=== PATIENT | female | born 1965 | race Caucasian/White ===

== ENCOUNTER 2023-10-18 21:42 | Emergency (ER) | payer OTHER, SELFPAY ==
[2023-10-18 21:46] VITALS: BP 179/108
[2023-10-18] MEDS: ZOFRAN ODT (ORALLY DISINTEGRATING) 4 MG PO (21:53)
[2023-10-18 22:04] LABS: Urine Albumin Negative (Neg - Trace); Urine Bilirubin Negative (Negative); Urine Character Clear (Clear); Urine Color Yellow; Urine Glucose Negative (Negative); Urine Ketone Negative (Negative); Urine Leukocyte Negative (Negative); Urine Nitrite Negative (Negative); Urine Occult Blood 1+ (Negative); Urine Specific Gravity 1.005 (<1.030); Urine Urobilinogen Negative (Neg - 1+)
[2023-10-18 22:11] LABS: Urine Bacteria Few (Negative); Urine White Cell 0-2 /HPF (0-5)
--- NOTE | 2023-10-18 23:28 | ED.GENMED ---
History of Present Illness
General
Chief Complaint: Flank Pain
Time Seen by Provider: 10/18/23 23:08
History of Present Illness
History of Present Illness:
58-year-old female with history of medullary sponge kidney and recurrent kidney stones presents to the emergency department for evaluation of left flank pain developing today. Typically she is able to pass kidney stones with only mild to moderate
pain and generally does well with ibuprofen. She is taken multiple doses of ibuprofen today without relief. Denies any fevers, chills, sweats, vomiting, or diarrhea.
Past History
Past History
ED Past Medical History: Other (Medullary sponge kidney, recurrent kidney stones, RSD)
Social History
Tobacco: Non-smoker
Alcohol: Occasional
Family History
Family History: Negative Diabetes, Hypertension or CAD
Review of Systems
Review of Systems
Allergies reviewed?: Yes
All Other Systems: ROS reviewed and negative except as documented in HPI and ROS
Phy Exam
Physical Exam
Physical Exam:
GEN: Well appearing, NAD, WDWN
HEENT: Oral mucosa moist, no scleral icterus
Cardiac: Regular rate
Lung: No respiratory distress, no tachypnea
MSK: No gross deformity or injuries
Skin: Good color, no pallor or jaundice, no rashes
Neuro: AO x3, moves all extremities freely
Psych: Calm, cooperative
Course
Orders/Labs/Results
Orders:
Orders
10/18/23 21:52
Ondansetron Orally Disint [Zofran Odt (Orally Disintegrating)] 4 mg .ROUTE .ST-MED ONE
10/18/23 21:53
Ondansetron Orally Disint [Zofran Odt (Orally Disintegrating)] 4 mg PO NOW STA
10/18/23 21:56
Urinalysis Reflex To Culture Urgent
Date Specimen was Collected: 10/18/23
Time Specimen was Collected: 21:49
Urine Microscopic Reflex Cult Urgent
10/18/23 23:28
CT Abd/pel Without Iv Or Oral Urgent
Comment:
Reason For Exam: L flank pain h/o stones
0.9% Sodium Chloride 1000 ml [Nss] 1,000 ml IV BOLUS
Ketorolac [Toradol] 15 mg IV NOW STA
10/19/23 00:30
Tamsulosin [Flomax] 0.4 mg PO NOW STA
Abnormal Lab Results
10/18/23
21:56
Ur Occult Blood Reflex 1+ A
(Negative)
Urine RBC 7-10 A /HPF
(0-2)
Urine Bacteria (Reflex) Few A
(Negative)
Vital Signs
Initial and Last Documented VS:
Initial Vital Signs
Temp Pulse Resp BP Pulse Ox
97.8 F 83 20 179/108 99
10/18/23 21:46 10/18/23 21:46 10/18/23 21:46 10/18/23 21:46 10/18/23 21:46
Last Documented Vital Signs
Temp Pulse Resp BP Pulse Ox
97.8 F 83 20 133/75 97
10/18/23 21:46 10/18/23 21:46 10/18/23 21:46 10/19/23 00:01 10/19/23 00:45
MDM/Problems Addressed
MDM/Problems Addressed:
Distal left ureteral stone identified, patient's pain improved with treatment in emergency department. She is a long history of kidney stones that have been managed without operative intervention. Will treat supportively, no indication for
antibiotics
*Critical Care Note
Total Time (30-74mins, 75-104mins- exclusive of procedures): Not Applicable
ED Attending Note
-
Portions of this chart may have been created with voice recognition software.� Occasional wrong word or��sound alike� substitutions may have occurred due to the inherent limitations of voice recognition software.
Discharge Plan
Departure
Patient Disposition: Home (Routine Discharge)
Date of Disposition: 10/19/23
Time of Disposition: 01:05
Patient with high blood pressure during this ER visit?: No
Discharge Problem:
Ureterolithiasis
Instructions: Kidney Stones (DC)
Prescriptions:
New
diclofenac sodium 75 mg tablet,delayed release (DR/EC)
75 mg PO BID PRN (Reason: Pain) Qty: 20 0RF
tamsulosin [Flomax] 0.4 mg capsule
0.4 mg PO HS Qty: 10 0RF
oxycodone-acetaminophen [Percocet] 5-325 mg tablet
1 tab PO Q6HPRN PRN (Reason: pain) Qty: 8 0RF
No Action
Theragen Tablet
1 tab PO DAILY
ibuprofen 200 mg Tablet
400 mg PO Q6H PRN (Reason: mild pain)
Referrals:
Keenan Morton CRNP [Family Provider] -
Activity Restrictions/Additional Instructions:
Return if you develop a fever or uncontrolled pain
Interventions
Interventions:
*Risk Screen - Suicide Last Done: 10/19/23 00:24
*General Assessment Last Done: 10/18/23 21:46
*Neglect/Abuse Screening Last Done: 10/19/23 00:24
ED- Fall Risk Assessment Last Done: 10/19/23 01:14
*Nursing Disposition Last Done: 10/19/23 01:14
FZ-Ifverx-Djnvbhyyua Assessment Last Done: 10/19/23 00:19
ED-Female Genitourinary Assessment Last Done: 10/19/23 00:19
Discharge Date and Time
Discharge Date/Time: 10/19/23 01:15
Print Language: HEBREW
[2023-10-19 00:01] VITALS: BP 133/75
[2023-10-19] MEDS: NSS 1000 IV (00:07)
[2023-10-19] MEDS: TORADOL 15 MG IV (00:07)
[2023-10-19] MEDS: FLOMAX 0.4 MG PO (01:00)
== END 2023-10-19 01:15 | disposition home or self-care (01) ==
LOC: EMR 21:42
PROVIDERS: Emergency Medicine; EMERGENCY PHYSICIAN Emergency Medicine; FAMILY PHYSICIAN Nurse Practitioner Family
DX: N20.1 Calculus of ureter (principal); Q61.5 Medullary cystic kidney; G90.50 Complex regional pain syndrome I, unspecified; Z87.442 Personal history of urinary calculi
CPT/HCPCS: 99284; 96374; 96361; 74176; 81003; 81015

== ENCOUNTER 2023-10-20 11:12 | Emergency (ER) | payer OTHER, SELFPAY ==
[2023-10-20] VITALS (7 sets, daily range): BP systolic 128–155; BP diastolic 70–99; BMI 33.9
[2023-10-20 11:47] LABS: Urine Albumin Negative (Neg - Trace); Urine Bilirubin Negative (Negative); Urine Character Clear (Clear); Urine Color Yellow; Urine Glucose Negative (Negative); Urine Ketone Negative (Negative); Urine Leukocyte Trace (Negative); Urine Nitrite Negative (Negative); Urine Occult Blood 2+ (Negative); Urine Urobilinogen Negative (Neg - 1+)
[2023-10-20 12:05] LABS: Urine Mucus Moderate
[2023-10-20 12:06] LABS: Urine Bacteria Few (Negative); Urine Red Blood Cell 16-20 /HPF (0-2)
[2023-10-20 12:16] LABS: % Basophils 0.4 % (0-2); % Eosinophils 1.6 % (0-6); % Immature Granulocytes 0.4 % (0-0.5); % Lymphocytes 20.9 % (20.5-51.1); % Monocytes 7.6 % (1.7-9.3); % Neutrophils 69.1 % (42.2-75.2); Absolute Basophils 0.1 10^3/uL (0-0.2); Absolute Eosinophils 0.2 10^3/uL (0-0.7); Absolute Immature Granulocytes 0.1 10^3/uL (0-0.05); Absolute Lymphocytes 2.6 10^3/uL (1.2-3.4); Absolute Monocytes 0.9 10^3/uL (0.1-0.6); Absolute Neutrophils 8.4 10^3/uL (1.4-6.5); Hemoglobin 13.1 g/dL (12.0-16.0); Mean Corp Hgb Conc. 33.6 g/dL (33.0-37.0); Mean Corpuscular Hgb 30.8 pg (27.0-31.0); Mean Corpuscular Volume 91.8 fL (81.0-99.0); Mean Platelet Volume 9.8 fL (7.4-10.4); Nucleated Red Blood Cells % 0 %; Platelet Count 285 10^3/uL (130-400); Red Blood Cell Count 4.25 10^6/uL (4.20-5.40); Red Cell Dist. Width 12.6 % (11.5-14.5); White Blood Cell Count 12.2 10^3/uL (4.8-10.8)
[2023-10-20 12:38] LABS: ALT (SGPT) 16 U/L (0-35); AST (SGOT) 25 U/L (14-36); Albumin 4.1 g/dl (3.5-5.0); Alkaline Phosphatase 76 U/L (38-126); Blood Urea Nitrogen 18 mg/dl (7-17); Calcium 9.1 mg/dl (8.4-10.2); Carbon Dioxide 23 mmol/L (22-30); Chloride 105 mmol/L (98-107); Glucose 144 mg/dl (70-99); Potassium 3.6 mmol/L (3.5-5.1); Sodium 135 mmol/L (135-145); Total Bilirubin 0.6 mg/dl (0.2-1.3); Total Protein 6.5 g/dl (6.3-8.2); eGFR > 60.00
--- NOTE | 2023-10-20 12:54 | ED.GENMED ---
History of Present Illness
<Naomi Jiang PA-C - Last Filed: 10/20/23 18:47>
General
Chief Complaint: Flank Pain
Source: patient
Exam Limitations: none
Time Seen by Provider: 10/20/23 12:32
Nursing documentation reviewed up to this point in time: agreed with
History of Present Illness
History of Present Illness:
58-year-old female presenting emergency department today with concerns of left flank pain. 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 She
follows with a doctor from [facility] who is since retired and she has a follow-up appointment on November 22. Patient reports that she did use the bathroom today and noticed some stone fragments. Patient denies any fevers or chills.
Patient does note persistent nausea and she states that she normally does not get nauseous with her kidney stones. Patient also notes intermittent left pelvic pain. Patient denies any vomiting. Patient denies any diarrhea or constipation. Patient
denies any fevers or chills. Patient was seen here in the ER 2 days ago and was noted to have a 4 mm distal left ureteral stone. Patient was treated symptomatically at that time.
Past History
<Naomi Jiang PA-C - Last Filed: 10/20/23 18:47>
Past History
ED Past Medical History: Other (Medullary sponge kidney, recurrent kidney stones, RSD)
Social History
Tobacco: Non-smoker
Alcohol: Occasional
Family History
Family History: Negative Diabetes, Hypertension or CAD
Review of Systems
<SAMUEL Wakefield Last Filed: 10/20/23 18:47>
Review of Systems
All Other Systems: ROS reviewed and negative except as documented in HPI and ROS
Phy Exam
<Naomi Jiang PA-C - Last Filed: 10/20/23 18:47>
Physical Exam
Physical Exam:
General: Patient is well appearing and in no acute distress; non-toxic
Skin: Warm and dry, no rashes or lesions
Head: Normocephalic, atraumatic
Eyes: Sclera non-icteric. EOMs intact.
Cardiac: Regular rate and rhythm, no murmurs
Peripheral Vascular: No lower extremity swelling or edema
Pulm: Normal respiratory effort
Abdomen: Mild left abdominal tenderness to palpation, no palpable masses, no guarding or rebound tenderness
Neuro: CN II-XII intact, no focal neurologic deficits.
Psychiatric: Appropriate mood and affect.
Course
<Naomi Jiang PA-C - Last Filed: 10/20/23 18:47>
Orders/Labs/Results
Orders:
Orders
10/20/23 11:36
Urinalysis Reflex To Culture Urgent
Date Specimen was Collected: 10/20/23
Time Specimen was Collected: 11:30
Urine Microscopic Reflex Cult Urgent
10/20/23 12:09
CMP [Comprehensive Metabolic Panel] Urgent
Complete Blood Count/With Diff Urgent
10/20/23 13:06
0.9% Sodium Chloride 1000 ml [Nss] 1,000 ml IV BOLUS
Ondansetron Injectable [Zofran] 4 mg IV NOW STA
10/20/23 13:19
Acetaminophen [Tylenol] 1,000 mg PO NOW STA
Abnormal Lab Results
10/20/23 10/20/23
11:36 12:09
WBC 12.2 H 10^3/uL
(4.8-10.8)
Abs Immat Gran (auto) 0.1 H 10^3/uL
(0-0.05)
Absolute Neuts (auto) 8.4 H 10^3/uL
(1.4-6.5)
Absolute Monos (auto) 0.9 H 10^3/uL
(0.1-0.6)
BUN 18 H mg/dl
(7-17)
Glucose 144 H mg/dl
(70-99)
Ur Occult Blood Reflex 2+ A
(Negative)
Leukocyte Esterase Rfl Trace A
(Negative)
Urine RBC 16-20 A /HPF
(0-2)
Urine Bacteria (Reflex) Few A
(Negative)
10/20/23 12:09
10/20/23 12:09
Vital Signs
Initial and Last Documented VS:
Initial Vital Signs
Temp Pulse Resp BP Pulse Ox
97.9 F 105 16 155/99 97
10/20/23 11:24 10/20/23 11:24 10/20/23 11:24 10/20/23 11:24 10/20/23 11:24
Last Documented Vital Signs
Temp Pulse Resp BP Pulse Ox
97.9 F 74 14 144/87 96
10/20/23 16:04 10/20/23 16:04 10/20/23 16:04 10/20/23 16:04 10/20/23 16:04
<Hubert Plaza MD - Last Filed: 10/20/23 14:55>
Orders/Labs/Results
Orders:
Orders
10/20/23 11:36
Urinalysis Reflex To Culture Urgent
Date Specimen was Collected: 10/20/23
Time Specimen was Collected: 11:30
Urine Microscopic Reflex Cult Urgent
10/20/23 12:09
CMP [Comprehensive Metabolic Panel] Urgent
Complete Blood Count/With Diff Urgent
10/20/23 13:06
0.9% Sodium Chloride 1000 ml [Nss] 1,000 ml IV BOLUS
Ondansetron Injectable [Zofran] 4 mg IV NOW STA
10/20/23 13:19
Acetaminophen [Tylenol] 1,000 mg PO NOW STA
Abnormal Lab Results
10/20/23 10/20/23
11:36 12:09
WBC 12.2 H 10^3/uL
(4.8-10.8)
Abs Immat Gran (auto) 0.1 H 10^3/uL
(0-0.05)
Absolute Neuts (auto) 8.4 H 10^3/uL
(1.4-6.5)
Absolute Monos (auto) 0.9 H 10^3/uL
(0.1-0.6)
BUN 18 H mg/dl
(7-17)
Glucose 144 H mg/dl
(70-99)
Ur Occult Blood Reflex 2+ A
(Negative)
Leukocyte Esterase Rfl Trace A
(Negative)
Urine RBC 16-20 A /HPF
(0-2)
Urine Bacteria (Reflex) Few A
(Negative)
10/20/23 12:09
10/20/23 12:09
Vital Signs
Initial and Last Documented VS:
Initial Vital Signs
Temp Pulse Resp BP Pulse Ox
97.9 F 105 16 155/99 97
10/20/23 11:24 10/20/23 11:24 10/20/23 11:24 10/20/23 11:24 10/20/23 11:24
Last Documented Vital Signs
Temp Pulse Resp BP Pulse Ox
97.9 F 74 14 144/87 96
10/20/23 16:04 10/20/23 16:04 10/20/23 16:04 10/20/23 16:04 10/20/23 16:04
Riannalt;Naomi Jiang PA-C - Last Filed: 10/20/23 18:47>
MDM/Problems Addressed
Differential Diagnosis Includes:
ddx include nephrolithiasis, pyelonephritis, acute cystitis
MDM/Problems Addressed:
Left flank pain:
58-year-old female presenting emergency department today with concerns of left flank pain. She has a known left ureteral stone. She was seen here in the ER a few days ago. Patient while here in the ER did pass a few stone fragments. Here in the
ER, she is well-appearing, her vital signs are stable, she is afebrile, her CBC demonstrates a mild leukocytosis and occult blood. Suspect patient's symptoms are likely related to ureteral colic/nephrolithiasis. Patient was treated symptomatically
and notes improvement of her symptoms. Considering patient's ongoing issues and considering her urology appointment is not until November 22, I did talk to urologist on-call to see if patient can get her appointment moved up. Dr. Sun states that
she can call the office Sunday and have her appointment moved sooner. Patient stable for discharge.
Chronic conditions affecting care:
Medullary sponge syndrome, recurrent nephrolithiasis
<Naomi Jiang PA-C - Last Filed: 10/20/23 18:47>
*Critical Care Note
Total Time (30-74mins, 75-104mins- exclusive of procedures): Not Applicable
ED Attending Note
<Naomi Jiang PA-C - Last Filed: 10/20/23 18:47>
-
Portions of this chart may have been created with voice recognition software.� Occasional wrong word or��sound alike� substitutions may have occurred due to the inherent limitations of voice recognition software.
<Hubert Plaza MD - Last Filed: 10/20/23 14:55>
ED Attending Note
Patient seen and examined by attending physician: Yes
ED Attending Note:
Patient with history of medullary sponge kidney, which has resulted in multiple kidney stone episodes in the past, diagnosed with obstructing renal stone 2 days ago, presents to ED secondary to persistent flank pain associated with nausea and
vomiting. Patient states that she has had number of kidney stones in the past, but has been able to manage her pain at home with Advil and spontaneously passed her stones. Patient has never experienced current nausea sensation and 'not feeling
good'. Denies fever or chills. Denies inability urinate. Since being discharged from ED, patient has called outpatient urology service and has an appointment at the end of October.
Physical Exam
General: mild distress, not acutely ill. afebrile
Head: nc/at. eomi
Neck: supple. no meningeal signs.
Abdomen: normal bowel sounds. not tender.
Neuro: alert and oriented. no focal neurological deficits
Skin: no rash
Psychiatric: well kept. interactive and cooperative
Extremities: no edema. no calf tenderness.
Patient reports significant improvement symptoms after treatment. Patient remains afebrile, hemodynamically stable, and nontoxic-appearing during prolonged course of observation ED.
Discharge Plan
Departure
Patient Disposition: Home (Routine Discharge)
Date of Disposition: 10/20/23
Time of Disposition: 14:57
Patient with high blood pressure during this ER visit?: Yes
Condition: Good
Discharge Problem:
Flank pain, Nausea
Instructions: Flank Pain (DC), Nausea and vomiting in adults, BLOOD PRESSURE
Prescriptions:
New
ondansetron 4 mg tablet,disintegrating
4 mg PO Q8H PRN (Reason: nausea and vomiting) Qty: 10 0RF
No Action
Theragen Tablet
1 tab PO DAILY
ibuprofen 200 mg Tablet
400 mg PO Q6H PRN (Reason: mild pain)
diclofenac sodium 75 mg tablet,delayed release (DR/EC)
75 mg PO BID PRN (Reason: Pain) Qty: 20 0RF
tamsulosin [Flomax] 0.4 mg capsule
0.4 mg PO HS Qty: 10 0RF
oxycodone-acetaminophen [Percocet] 5-325 mg tablet
1 tab PO Q6HPRN PRN (Reason: pain) Qty: 8 0RF
Referrals:
Keenan Morton CRNP [Family Provider] -
Activity Restrictions/Additional Instructions:
Please call the urology office first thing on Sunday to schedule a sooner appointment, please say that you were seen here in the emergency department and Dr. Sun said your appointment can be moved up in light of your ongoing issues.
Please stay well-hydrated.
Zofran has been sent to your pharmacy. You can dissolve 1 tablet under the tongue every 8 hours as needed for nausea and vomiting.
Please return emergency department should you experience intractable vomiting, fevers or chills, acute worsening of your symptoms, burning with urination, urinary urgency or frequency, any other signs or symptoms concerning to you.
Interventions
Interventions:
*Risk Screen - Suicide Last Done: 10/20/23 13:44
*General Assessment Last Done: 10/20/23 13:44
*Neglect/Abuse Screening Last Done: 10/20/23 13:44
ED- Fall Risk Assessment Last Done: 10/20/23 13:45
*ED COVID-19 Vaccine History Last Done: 10/20/23 13:44
*Nursing Disposition Last Done: 10/20/23 16:04
HR-Wqzili-Xdyztfijwg Assessment Last Done: 10/20/23 13:45
ED-Female Genitourinary Assessment Last Done: 10/20/23 13:45
Discharge Date and Time
Discharge Date/Time: 10/20/23 16:05
Print Language: GEORGIAN
[2023-10-20] MEDS: NSS 1000 IV (13:38)
[2023-10-20] MEDS: ZOFRAN 4 MG IV (13:38)
[2023-10-20] MEDS: TYLENOL 1000 MG PO (13:38)
== END 2023-10-20 16:05 | disposition home or self-care (01) ==
LOC: EMR 11:12
PROVIDERS: EMERGENCY PHYSICIAN Emergency Medicine; FAMILY PHYSICIAN Nurse Practitioner Family
DX: R10.9 Unspecified abdominal pain (principal); R10.2 Pelvic and perineal pain; R11.2 Nausea with vomiting, unspecified; N20.2 Calculus of kidney with calculus of ureter; Q61.5 Medullary cystic kidney; G90.50 Complex regional pain syndrome I, unspecified; Z87.442 Personal history of urinary calculi; Z87.891 Personal history of nicotine dependence
CPT/HCPCS: 99284; 96374; 96361; 80053; 81003; 81015; 85025

== ENCOUNTER → 2023-12-08 09:04 | Outpatient (REF) | payer OTHER, SELFPAY ==
[2023-12-08 10:25] LABS: % Basophils 0.7 % (0-2); % Eosinophils 2.8 % (0-6); % Immature Granulocytes 0.1 % (0-0.5); % Monocytes 7.2 % (1.7-9.3); % Neutrophils 40.2 % (42.2-75.2); Absolute Basophils 0.1 10^3/uL (0-0.2); Absolute Eosinophils 0.2 10^3/uL (0-0.7); Absolute Lymphocytes 3.5 10^3/uL (1.2-3.4); Absolute Monocytes 0.5 10^3/uL (0.1-0.6); Absolute Neutrophils 2.9 10^3/uL (1.4-6.5); Hematocrit 41.5 % (37.0-47.0); Mean Corp Hgb Conc. 33.7 g/dL (33.0-37.0); Mean Corpuscular Hgb 30.8 pg (27.0-31.0); Mean Corpuscular Volume 91.4 fL (81.0-99.0); Nucleated Red Blood Cells % 0 %; Platelet Count 291 10^3/uL (130-400); Red Blood Cell Count 4.54 10^6/uL (4.20-5.40); Red Cell Dist. Width 12.4 % (11.5-14.5); White Blood Cell Count 7.1 10^3/uL (4.8-10.8)
[2023-12-08 10:56] LABS: ALT (SGPT) 15 U/L (0-35); AST (SGOT) 22 U/L (14-36); Albumin 4.4 g/dl (3.5-5.0); Alkaline Phosphatase 81 U/L (38-126); Blood Urea Nitrogen 18 mg/dl (7-17); Calcium 9.6 mg/dl (8.4-10.2); Carbon Dioxide 25 mmol/L (22-30); Chloride 106 mmol/L (98-107); Direct Bilirubin 0.2 mg/dl (0.0-0.4); Glucose 91 mg/dl (70-99); HDL Cholesterol 94 mg/dl; LDL Cholesterol, Calculated 121 mg/dl; Potassium 4.4 mmol/L (3.5-5.1); Sodium 142 mmol/L (135-145); Total Bilirubin 0.5 mg/dl (0.2-1.3); Total Cholesterol 234 mg/dl (50-199); Triglyceride 96 mg/dl (10-149); Very Low Density Lipoprotein 19 mg/dl (0-30); eGFR > 60.00
[2023-12-08 11:18] LABS: TSH Reflex To Free T4 1.82 uIU/ml (0.47-4.68)
== END ==
LOC: WDC 09:04
PROVIDERS: ATTENDING PHYSICIAN Nurse Practitioner Family
DX: Z12.31 Encounter for screening mammogram for malignant neoplasm of breast (principal); I10 Essential (primary) hypertension; N20.0 Calculus of kidney; Q61.5 Medullary cystic kidney; E66.9 Obesity, unspecified; Z00.00 Encounter for general adult medical examination without abnormal findings
CPT/HCPCS: 36415; 77063; 77067; 80053; 80061; 82248; 84443; 85025

== ENCOUNTER 2024-08-09 22:19 | Emergency (ER) | payer OTHER, SELFPAY ==
[2024-08-09 22:23] VITALS: BP 188/115
[2024-08-09 22:40] LABS: % Basophils 0.4 % (0-2); % Eosinophils 1.3 % (0-6); % Immature Granulocytes 0.3 % (0-0.5); % Monocytes 7.8 % (1.7-9.3); % Neutrophils 66.2 % (42.2-75.2); Absolute Basophils 0.1 10^3/uL (0-0.2); Absolute Eosinophils 0.2 10^3/uL (0-0.7); Absolute Lymphocytes 2.8 10^3/uL (1.2-3.4); Absolute Monocytes 0.9 10^3/uL (0.1-0.6); Absolute Neutrophils 7.8 10^3/uL (1.4-6.5); Hematocrit 41.5 % (37.0-47.0); Hemoglobin 14.2 g/dL (12.0-16.0); Mean Corp Hgb Conc. 34.2 g/dL (33.0-37.0); Mean Corpuscular Hgb 30.6 pg (27.0-31.0); Mean Corpuscular Volume 89.4 fL (81.0-99.0); Mean Platelet Volume 9.2 fL (7.4-10.4); Nucleated Red Blood Cells % 0 %; Platelet Count 278 10^3/uL (130-400); Red Blood Cell Count 4.64 10^6/uL (4.20-5.40); Red Cell Dist. Width 12.7 % (11.5-14.5); White Blood Cell Count 11.8 10^3/uL (4.8-10.8)
[2024-08-09 22:42] LABS: Urine Albumin Negative (Neg - Trace); Urine Bilirubin Negative (Negative); Urine Character Clear (Clear); Urine Glucose Negative (Negative); Urine Ketone Negative (Negative); Urine Leukocyte Negative (Negative); Urine Nitrite Negative (Negative); Urine Occult Blood 1+ (Negative); Urine Urobilinogen Negative (Neg - 1+); Urine pH 6.5 (5.0-9.0)
[2024-08-09 22:48] LABS: Urine Color Straw
[2024-08-09 22:54] LABS: ALT (SGPT) 17 U/L (0-35); AST (SGOT) 21 U/L (14-36); Albumin 4.6 g/dl (3.5-5.0); Alkaline Phosphatase 79 U/L (38-126); Blood Urea Nitrogen 20 mg/dl (7-17); Calcium 9.8 mg/dl (8.4-10.2); Carbon Dioxide 24 mmol/L (22-30); Chloride 108 mmol/L (98-107); Glucose 118 mg/dl (70-99); Potassium 4.3 mmol/L (3.5-5.1); Sodium 139 mmol/L (135-145); Total Bilirubin 0.6 mg/dl (0.2-1.3); Total Protein 7.6 g/dl (6.3-8.2); eGFR > 60.00
[2024-08-09 22:59] LABS: Urine Red Blood Cell 0-2 /HPF (0-2); Urine Squamous Cell 21-25 /LPF (Few); Urine White Cell 0-2 /HPF (0-5)
--- NOTE | 2024-08-10 00:46 | ED.GENMED ---
History of Present Illness
General
Chief Complaint: Flank Pain
Source: patient and spouse
Time Seen by Provider: 08/10/24 00:32
History of Present Illness
History of Present Illness:
58-year-old female presents emergency department with complaints of pain in the right flank area radiating to the right lower quadrant that started yesterday while she was at work. She had partial relief of symptoms with Motrin. She describes the
pain as constant with unpredictable exacerbations. She noted today associated nausea, chills, feeling bloated, with loose mustard colored stools. She also notes that her abdomen hurts when she coughs. She denies fever, vomiting, chest pain,
dyspnea, urinary symptoms. Some of the symptoms are consistent with prior kidney stones, however she does not typically have chills and a sense of bloating. She did note bloating and chills about 3 weeks ago that resolved spontaneously and she did
not have an evaluation at that time. She denies any other complaints.
Past History
Past History
ED Past Medical History: Other (Medullary sponge kidney, recurrent kidney stones, RSD)
ED Past Surgical History: , Tonsilectomy and Urological
Social History
Tobacco: Non-smoker
Alcohol: Occasional
Drug: None
Personal:
Living: with family
Family History
Family History: Negative Diabetes, Hypertension or CAD
Phy Exam
Physical Exam
Physical Exam:
GENERAL: Alert , in no apparent distress
EYE: pupils equal and reactive
NECK: Supple, no significant adenopathy.
ENT: o/p clr, mmm.
CARDIAC: Regular rate and rhythm .
LUNGS: Clear breath sounds bilaterally, no acute respiratory distress, no wheezes/rales/rhonchi
ABDOMEN: Soft, mild tenderness across lower abdomen, no r/g, no cvat
NEUROLOGICAL: Alert and oriented, no focal neuro deficits
SKIN: Warm and dry, skin intact.
MUSCULOSKELETAL: No edema, well perfused.
PSYCH: Normal and appropriate interaction.
Course
Orders/Labs/Results
Orders:
Orders
08/09/24 22:25
Electrocardiogram (*1) Urgent
Reason for Study: Other
Other Reason for Exam: Possible Sepsis
08/09/24 22:26
EKG- Treatment ONCE
08/09/24 22:33
Complete Blood Count/With Diff Urgent
Comprehensive Metabolic Panel Urgent
Urinalysis Reflex To Culture Urgent
Date Specimen was Collected: 08/09/24
Time Specimen was Collected: :
Urine Microscopic Reflex Cult Urgent
08/10/24 00:44
Ondansetron Injectable [Zofran] 4 mg IV NOW STA
08/10/24 00:45
CT Abd/Pel (IV only)-[facility] only Urgent
Comment:
Reason For Exam: R flank/abd pain, xh stones
Abnormal Lab Results
08/09/24
22:33
WBC 11.8 H 10^3/uL
(4.8-10.8)
Absolute Neuts (auto) 7.8 H 10^3/uL
(1.4-6.5)
Absolute Monos (auto) 0.9 H 10^3/uL
(0.1-0.6)
Chloride 108 H mmol/L
(98-107)
BUN 20 H mg/dl
(7-17)
Glucose 118 H mg/dl
(70-99)
Ur Occult Blood Reflex 1+ A
(Negative)
08/09/24 22:33
08/09/24 22:33
Vital Signs
Initial and Last Documented VS:
Initial Vital Signs
Temp Pulse Resp BP Pulse Ox
98.5 F 107 16 188/115 100
08/09/24 22:23 08/09/24 22:23 08/09/24 22:23 08/09/24 22:23 08/09/24 22:23
Last Documented Vital Signs
Temp Pulse Resp BP Pulse Ox
98.5 F 101 16 147/87 93
08/09/24 22:23 08/10/24 01:03 08/10/24 01:03 08/10/24 01:03 08/10/24 01:03
*Critical Care Note
Total Time (30-74mins, 75-104mins- exclusive of procedures): Not Applicable
Update Note
Update Note:
Patient presents to the Emergency Department with __flank and abdominal pain, nausea, feeling bloated
Number and Complexity of Problems Addressed at the Encounter
� Chronic conditions affecting care:
� Acute Exacerbation and/or Progression of Chronic Illness:
� Differential Diagnosis includes: But not limited to pyelonephritis, kidney stone, cholecystitis, appendicitis, constipation, etc. etc.
Amount and/or Complexity of Data to be Reviewed and Analyzed
� I performed an independent evaluation of and my interpretation is:
EKG:
CT:verbal reports---vision--sigmoid diverticulitis, no perf or abscess
Xrays:
Laboratory Studies:mild leukocytosis, nonspec blood in urine (micro), mild prerenal azotemia
Other:
� Review of other/old records reveals:
� Clinical information was obtained by an independent historian: who is bedside
� Prescriptions/Medications Considered but not given:
� Further testing considered but not performed:
Risk of Complications and/or Morbidity or Mortality of Patient Management
� Social determinants of health affecting care:
� Discussion with other providers (PCP, Hospitalists, Consultants, etc):
� Escalation of care including admission/observation vs risk of discharge considered: Patient well-appearing, no contraindications to outpatient management, not vomiting, nontoxic, etc. Discussed with her her findings, course of
care, importance of follow-up and reasons to return to the ER. I also advised her regarding the microscopic hematuria noted today and need for follow-up.
ED Attending Note
-
Portions of this chart may have been created with voice recognition software.� Occasional wrong word or��sound alike� substitutions may have occurred due to the inherent limitations of voice recognition software.
Discharge Plan
Departure
Patient with high blood pressure during this ER visit?: Yes
Condition: Good
Discharge Problem:
Diverticulitis
Instructions: Diverticulitis - Discharge instructions, BLOOD PRESSURE
Prescriptions:
New
amoxicillin-pot clavulanate 875-125 mg tablet
1 tab PO BID Qty: 20 0RF
No Action
Theragen Tablet
1 tab PO DAILY
Referrals:
Keenan Morton CRNP [Family Provider] - Follow up in 2-3 days
Activity Restrictions/Additional Instructions:
IF YOU DEVELOP INCREASING NEW OR PERSISTENT PAIN, ANY FEVER, VOMITING, DIZZINESS, OR OTHER WORRISOME SIGNS, PLEASE RETURN TO THE ER IMMEDIATELY
Interventions
Interventions:
*Risk Screen - Suicide Last Done: 08/09/24 22:23
*General Assessment Last Done: 08/10/24 00:58
*Neglect/Abuse Screening Last Done: 08/09/24 22:23
*ED- Fall Risk Assessment Last Done: 08/10/24 00:58
*ED COVID-19 Vaccine History Last Done: 08/10/24 00:58
SL-Qwevuu-Iikmuuysra Assessment Last Done: 08/10/24 01:06
ED-Female Genitourinary Assessment Last Done: 08/10/24 01:06
Discharge Date and Time
Print Language: SAUDI ARABIAN
[2024-08-10] MEDS: ZOFRAN 4 MG IV (01:02)
[2024-08-10 01:03] VITALS: BP 147/87
[2024-08-10 01:12] VITALS: BMI 41.7
--- NOTE | 2024-08-10 02:25 | ED.GENMED ---
History of Present Illness
General
Chief Complaint: Flank Pain
Time Seen by Provider: 08/10/24 00:32
Past History
Past History
ED Past Medical History: Other (Medullary sponge kidney, recurrent kidney stones, RSD)
ED Past Surgical History: , Tonsilectomy and Urological
Social History
Tobacco: Non-smoker
Alcohol: Occasional
Drug: None
Personal:
Living: with family
Family History
Family History: Negative Diabetes, Hypertension or CAD
Course
Orders/Labs/Results
Orders:
Orders
08/09/24 22:25
Electrocardiogram (*1) Urgent
Reason for Study: Other
Other Reason for Exam: Possible Sepsis
08/09/24 22:26
EKG- Treatment ONCE
08/09/24 22:33
Complete Blood Count/With Diff Urgent
Comprehensive Metabolic Panel Urgent
Urinalysis Reflex To Culture Urgent
Date Specimen was Collected: 08/09/24
Time Specimen was Collected: 22:26
Urine Microscopic Reflex Cult Urgent
08/10/24 00:44
Ondansetron Injectable [Zofran] 4 mg IV NOW STA
08/10/24 00:45
CT Abd/Pel (IV only)-[facility] only Urgent
Comment:
Reason For Exam: R flank/abd pain, xh stones
08/10/24 02:21
Amoxicillin 875 mg/Clav 125 mg [Augmentin 875 mg/125 mg] 1 tablet PO NOW STA
Abnormal Lab Results
08/09/24
22:33
WBC 11.8 H 10^3/uL
(4.8-10.8)
Absolute Neuts (auto) 7.8 H 10^3/uL
(1.4-6.5)
Absolute Monos (auto) 0.9 H 10^3/uL
(0.1-0.6)
Chloride 108 H mmol/L
(98-107)
BUN 20 H mg/dl
(7-17)
Glucose 118 H mg/dl
(70-99)
Ur Occult Blood Reflex 1+ A
(Negative)
08/09/24 22:33
08/09/24 22:33
Vital Signs
Initial and Last Documented VS:
Initial Vital Signs
Temp Pulse Resp BP Pulse Ox
98.5 F 107 16 188/115 100
08/09/24 22:23 08/09/24 22:23 08/09/24 22:23 08/09/24 22:23 08/09/24 22:23
Last Documented Vital Signs
Temp Pulse Resp BP Pulse Ox
98.5 F 101 16 147/87 93
08/09/24 22:23 08/10/24 01:03 08/10/24 01:03 08/10/24 01:03 08/10/24 01:03
ED Attending Note
-
Portions of this chart may have been created with voice recognition software.� Occasional wrong word or��sound alike� substitutions may have occurred due to the inherent limitations of voice recognition software.
Discharge Plan
Departure
Patient Disposition: Home (Routine Discharge)
Date of Disposition: 08/10/24
Time of Disposition: 02:25
Patient with high blood pressure during this ER visit?: Yes
Condition: Good
Discharge Problem:
Diverticulitis
Instructions: Diverticulitis - Discharge instructions, BLOOD PRESSURE
Prescriptions:
New
amoxicillin-pot clavulanate 875-125 mg tablet
1 tab PO BID Qty: 20 0RF
No Action
Theragen Tablet
1 tab PO DAILY
Referrals:
Keenan Morton CRNP [Family Provider] - Follow up in 2-3 days
Activity Restrictions/Additional Instructions:
IF YOU DEVELOP INCREASING NEW OR PERSISTENT PAIN, ANY FEVER, VOMITING, DIZZINESS, OR OTHER WORRISOME SIGNS, PLEASE RETURN TO THE ER IMMEDIATELY
Interventions
Interventions:
*Risk Screen - Suicide Last Done: 08/09/24 22:23
*General Assessment Last Done: 08/10/24 00:58
*Neglect/Abuse Screening Last Done: 08/09/24 22:23
*ED- Fall Risk Assessment Last Done: 08/10/24 00:58
*ED COVID-19 Vaccine History Last Done: 08/10/24 00:58
FA-Gptxnt-Yycaggylzl Assessment Last Done: 08/10/24 01:06
ED-Female Genitourinary Assessment Last Done: 08/10/24 01:06
Discharge Date and Time
Print Language: MACANESE
[2024-08-10] MEDS: AUGMENTIN 875 MG/125 MG 1 TABLET PO (02:37)
[2024-08-10 02:40] VITALS: BP 150/85
== END 2024-08-10 02:48 | disposition home or self-care (01) ==
LOC: EMR 22:19
PROVIDERS: Student in an Organized Health Care Education/Training Program; EMERGENCY PHYSICIAN Emergency Medicine; FAMILY PHYSICIAN Nurse Practitioner Family
DX: K57.32 Diverticulitis of large intestine without perforation or abscess without bleeding (principal); R03.0 Elevated blood-pressure reading, without diagnosis of hypertension
CPT/HCPCS: 99285; 96374; 74177; 80053; 81003; 81015; 85025; 93005; Q9967